=== PATIENT | male | born 1955 | race Caucasian/White ===

== ENCOUNTER 2017-03-24 03:27 | Emergency (ER) | payer BC ==
--- NOTE | 2017-03-24 05:27 | ED ---
I, Antwan,Bridget, scribed for Mahamed Jackman MD on 03/24/17 at 0417 . Laceration/Wound HPI - HPI Summary HPI Summary: This 61 y/o male presents to ED for right eye brow laceration after tripping onto bed spread and hitting his head on dresser tonight [employer]. Pt denies LOC or being on any blood thinner. Bleeding is controlled at time of initial evaluation. Pt denies any PMHx except seasonal allergies. - History of Current Complaint Stated Complaint: RIGHT EYE LAC Hx Obtained From: Patient Mechanism of Injury: Sharp/Blunt Trauma Onset/Duration: Sudden Onset Aggravating: Nothing Alleviating: Nothing Pain Intensity: 1 Pain Scale Used: 0-10 Numeric Associated Signs & Symptoms: Negative - Allergy/Home Medications Allergies/Adverse Reactions: Allergies Allergy/AdvReac Type Severity Reaction Status Date / Time Codeine AdvReac Mild See Comment Verified 03/24/17 03:37 PMH/Surg Hx/FS Hx/Imm Hx Respiratory History: Reports: Hx Seasonal Allergies Infectious Disease History: No Infectious Disease History: Denies: Traveled Outside the [place] in Last 30 Days - Family History Known Family History: Negative: Cardiac Disease - Social History Alcohol Use: Occasionally Substance Use Type: Reports: None Smoking Status (MU): Unknown if Ever Smoked Review of Systems Negative: Fever Positive: Other - laceration at right eyebrow Negative: Syncope All Other Systems Reviewed And Are Negative: Yes Physical Exam Triage Information Reviewed: Yes Vital Signs On Initial Exam: Initial Vitals Temp Pulse Resp BP Pulse Ox 98.3 F 87 16 130/73 95 03/24/17 03:35 03/24/17 03:35 03/24/17 03:35 03/24/17 03:35 03/24/17 03:35 Vital Signs Reviewed: Yes Appearance: Positive: Well-Appearing, Pain Distress - mikld discomfort Skin: Positive: Warm Head/Face: Positive: Other - 6cm lac above rt eyebrow Eyes: Positive: WILD ENT: Positive: Hearing grossly normal Neck: Positive: Supple Respiratory/Lung Sounds: Positive: Clear to Auscultation, Breath Sounds Present Cardiovascular: Positive: RRR Neurological: Positive: Sensory/Motor Intact, Alert, Oriented to Person Place, Time, Normal Gait Procedures - Laceration/Wound Repair 1 Location: head - right brow Description: Linear Anesthesia: Local, 2.0%, Lido Length, Depth and Shape: 6cm Betadine Prep?: Yes Laceration/Wound Explored: clean Closure: Single Layer Suture Type: Nylon Number of Sutures: 11 Layer Closure?: No Sterile Dressing Applied?: Yes Diagnostics - Vital Signs Vital Signs Temp Pulse Resp BP Pulse Ox 03/24/17 03:35 98.3 F 87 16 130/73 95 - Laboratory Lab Statement: Any lab studies that have been ordered have been reviewed, and results considered in the medical decision making process. Laceration Repair Course/Dx - Clinical Impression Provider Diagnoses: Facial laceration Discharge - Discharge Plan Condition: Improved Disposition: HOME Prescriptions: Cephalexin CAP* [Keflex CAP*] 250 mg PO QID #14 cap Patient Education Materials: Cephalexin (By mouth), Care For Your Stitches (ED) , Facial Laceration (ED) Referrals: [facility] [place] [Outside] - 2 Days Non Staff,Doctor [Primary Care Provider] - Additional Instructions: Be sure to have your stitches removed in 5-7 days. The documentation as recorded by the Antwan hernandez Soohyun accurately reflects the service I personally performed and the decisions made by me, Mahamed Jackman MD.
[2017-03-24] MEDS ORDERED: Cephalexin CAP* 250 MG PO ONE (05:33)
[2017-03-24 05:40] VITALS: BP 120/76
== END 2017-03-24 05:40 | disposition home or self-care (01) ==
LOC: ED 03:27
DX: S01.111A Laceration without foreign body of right eyelid and periocular area, initial encounter (principal); W18.09XA Striking against other object with subsequent fall, initial encounter; Y92.9 Unspecified place or not applicable; Z88.5 Allergy status to narcotic agent
CPT/HCPCS: 12014; 99282; A9270-GY

== ENCOUNTER 2020-05-11 05:45 | Inpatient (IN) ==
[2020-05-11 06:50] LABS: ABS Basophils 0.1 10^3/ul (0-0.2); ABS Eosinophils 0.1 10^3/ul (0-0.6); ABS Lymphocytes 1.9 10^3/ul (1.0-4.8); ABS Monocytes 0.7 10^3/ul (0-0.8); Eosinophil % 1.7 %; Hematocrit 46 % (42-52); Hemoglobin 16.2 g/dL (14.0-18.0); Lymphocyte % 32.9 %; Mean Corpuscular HGB Conc 35 g/dL (31-36); Mean Corpuscular Hemoglobin 35 pg (27-31); Mean Corpuscular Volume 100 fL (80-94); Mean Platelet Volume 8.2 fL (7.4-10.4); Nucleated Red Blood Cells % 0.1; Platelet Count 294 10^3/uL (150-450); Red Blood Count 4.61 10^6 /uL (4.18-5.48); Red Cell Distribution Width 16 % (10-15); White Blood Count 5.7 10^3/uL (3.5-10.8)
[2020-05-11 07:17] LABS: ALT 20 U/L (7-52); AST 31 U/L (13-39); Albumin 4.9 g/dL (3.2-5.2); Albumin/Globulin Ratio 1.6 (1-3); Alkaline Phosphatase 56 U/L (34-104); Anion Gap 11 mmol/L (2-11); BUN/Creatinine Ratio 8.5 (8-20); Blood Urea Nitrogen 6 mg/dL (6-24); CO2 Carbon Dioxide 27 mmol/L (22-32); Chloride 103 mmol/L (101-111); EGFR African American 134.7 (>60); EGFR Non-African American 111.3 (>60); Glucose 87 mg/dL (70-100); Potassium 4.2 mmol/L (3.5-5.0); Sodium 141 mmol/L (135-145); Total Protein 7.9 g/dL (6.4-8.9)
[2020-05-11 07:44] LABS: Acetaminophen < 15 mcg/mL; Alcohol, S 206 mg/dL (<10); Salicylate < 2.50 mg/dL (<30)
[2020-05-11 07:57] LABS: Urine Appearance Clear; Urine Bilirubin Negative (Negative); Urine Blood Negative (Negative); Urine Color Yellow; Urine Glucose Negative (Negative); Urine Ketones Trace (Negative); Urine Nitrite Negative (Negative); Urine Protein Negative (Negative); Urine Urobilinogen Negative (Negative)
[2020-05-11 08:00] LABS: TSH Ultra Thyroid Stim Horm 3.69 mcIU/mL (0.34-5.60)
[2020-05-11 08:10] LABS: Urine Benzodiazepine Screen None Detected (None Detect); Urine Cannabinoids Screen Presumptive Positive (None Detect); Urine Opiates Screen None Detected (None Detect)
[2020-05-11] MEDS ORDERED: Al Hydrox/Mg Hydrox/Simet LIQ 30 ML UDC PO PRN (10:25)
[2020-05-11] MEDS ORDERED: Nicotine Lozenge mini 2 MG LOZNG.MINI MT PRN (11:48)
[2020-05-11] MEDS: DULoxetine DR 20 mg CAP PO SCH (15:21)
[2020-05-12 08:01] LABS: HDL Cholesterol 76.5 mg/dL
[2020-05-12] MEDS: Vitamin THERAPEUTIC TAB PO SCH (10:00)
[2020-05-12] MEDS: DULoxetine DR 20 mg CAP PO SCH (10:00)
[2020-05-13] MEDS: DULoxetine DR 20 mg CAP PO SCH (09:29)
[2020-05-13] MEDS: Vitamin THERAPEUTIC TAB PO SCH (09:29)
[2020-05-14] MEDS: Vitamin THERAPEUTIC TAB PO SCH (09:32)
[2020-05-14] MEDS: DULoxetine DR 20 mg CAP PO SCH (09:32)
[2020-05-15] MEDS ORDERED: DULoxetine DR 30 mg CAP PO SCH (09:00)
[2020-05-15] MEDS: Vitamin THERAPEUTIC TAB PO SCH (09:25)
[2020-05-15 11:11] VITALS: BP 135/70
== END 2020-05-15 12:00 | disposition home or self-care (01) | DRG 751 ==
LOC: ED 05:45 → BSU 12:52
PROVIDERS: ADMIT Psychiatry & Neurology Psychiatry; ATTEND Psychiatry & Neurology Psychiatry